=== PATIENT | male | born 1970 | race Hispanic/Latino ===

== ENCOUNTER 2016-07-12 13:07 | Observation (INO) | payer OTHER ==
[~2016-07-12] VITALS: Ht 175.3 cm; Wt 81.2 kg
[~2016-07-12 13:07] MED LIST: DEPAKOTE500 MG PO
[2016-07-12] MEDS ORDERED: LANTUS 3 M100 UNITS1 SC (13:54)
[2016-07-12] MEDS ORDERED: LIPITOR40 MG PO (13:54)
[2016-07-12] MEDS ORDERED: LISINOPRIL40 MG PO (13:55)
[2016-07-12] MEDS ORDERED: CALCIUM 500 +1 EACH PO (13:55)
[2016-07-12] MEDS ORDERED: ELAVIL25 MG PO (13:56)
[2016-07-12] MEDS ORDERED: VITAMIN A A1 CAPSULE PO (13:56)
[2016-07-12] MEDS ORDERED: VITAMIN E100 UNIT PO (13:57)
[2016-07-12] MEDS ORDERED: DAILY VALUE1 EACH PO (13:57)
[2016-07-12] MEDS ORDERED: TYLENOL EXTRA500 MG PO (13:57)
[2016-07-12] MEDS ORDERED: PROAIR HFA8.5 GM IH (13:58)
[2016-07-12] MEDS ORDERED: CLARITIN10 M3 PO (13:58)
[2016-07-12] MEDS ORDERED: DEPAKOTE250 MG PO (13:58)
[2016-07-12 14:09] LABS: EOSINOPHIL (%) 0.1 % (0-5); HEMATOCRIT 36.6 % (38.0-50.0); IMMATURE GRANULOCYTE (%) 0.3 % (0.0-0.7); IMMATURE GRANULOCYTE COUNT 0.1 K/uL; INSTRUMENT ABS NEUTROPHIL CT 12.8 K/uL; LYMPHOCYTE COUNT 0.6 K/uL (1.0-2.8); MCH 29.4 PG (29.0-34.0); MCV 83.9 FL (86-99); MEAN PLAT.VOLUME 9.2 uM^3 (9.0-12.4); MONOCYTE (%) 6.9 % (3-12); NEUTROPHIL (%) 88.7 % (45-76); NEUTROPHIL COUNT 12.8 K/uL (1.8-6.4); PLATELET COUNT 291 K/uL (156-360); RBC DIS.WIDTH-CV 13.2 % (11.8-14.6); RBC DIS.WIDTH-SD 40.4 % (39-53); RED BLOOD COUNT 4.36 M/uL (4.00-5.50); WHITE BLOOD COUNT 14.4 K/uL (4.1-10.2)
[2016-07-12 14:18] LABS: CHLORIDE 107 mEq/L (99-109); SODIUM 140 mEq/L (136-147)
[2016-07-12 14:21] LABS: GLUCOSE 131 mg/dL (70-99)
[2016-07-12 14:22] LABS: ANION GAP 11 MEQ/L (2-14); TOTAL BILIRUBIN 0.5 mg/dL (0.0-1.0)
[2016-07-12 14:23] LABS: SERUM ETHYL ALCOHOL < 10 mg/dL
[2016-07-12 14:24] LABS: ALKALINE PHOSPHATASE 60 IU/L (3-129); GFR ESTIMATE (CALCULATED) 58 mL/min/
[2016-07-12 14:25] LABS: UREA NITROGEN (BUN) 21 mg/dL (9-23)
[2016-07-12 18:22] LABS: AMPHETAMINE NEGATIVE (500 ng/mL); BENZODIAZEPINES NEGATIVE (150 ng/mL); COCAINE NEGATIVE (150 ng/mL); METHADONE NEGATIVE (200 ng/mL); METHAMPHETAMINE NEGATIVE (500 ng/mL); OPIATES (MORPHINE) NEGATIVE (100 ng/mL); PHENCYCLIDINE NEGATIVE (25 ng/mL); THC CANNABINOIDS NEGATIVE (50 ng/mL); TRICYCLIC ANTIDEPRESSANTS NEGATIVE (300 ng/mL)
[2016-07-12 18:23] LABS: BARBITURATES NEGATIVE (200 ng/mL); INTERNAL CONTROLS VALID? YES; OXYCODONE NEGATIVE (100 ng/mL); PROPOXYPHENE NEGATIVE (300 ng/mL)
[2016-07-12] MEDS ORDERED: [UNRECOGNIZED DRUG - OTHER] TP (20:57)
[2016-07-12] MEDS ORDERED: TUMS500 MG PO (21:00)
[2016-07-12] MEDS ORDERED: A AND D OINTM42.5 GM TP (21:01)
[2016-07-12] MEDS ORDERED: GLUCOSE4 GM PO (21:02)
[2016-07-13 00:01] VITALS: BP 123/76
[2016-07-13 00:21] LABS: ADD MIUA? YES; BILIRUBIN NEGATIVE; BLOOD MODERATE; COLOR YELLOW ((YELLOW)); GLUCOSE (STRIP) NEGATIVE; KETONES NEGATIVE; LEUKOCYTES LARGE; NITRITE NEGATIVE; PROTEIN (STRIP) NEGATIVE; SPECIFIC GRAVITY 1.011 (1.000-1.030); UROBILINOGEN 0.2 MG/DL (0.2-1.0)
[2016-07-13 00:29] LABS: POINT-OF-CARE METER ID UU13113831
[2016-07-13 00:32] LABS: BACTERIA NONE SEEN /HPF; EPITHELIAL CELLS RARE /HPF; MUCUS TRACE /LPF; RED BLOOD CELLS 40-50 /HPF (0-5); UCUL ADDED? NO; WHITE BLOOD CELLS 20-30 /HPF (0-5)
[2016-07-13 04:35] VITALS: BP 117/58
[2016-07-13 06:30] LABS: HEMATOCRIT 35.4 % (38.0-50.0); MCH 28.8 PG (29.0-34.0); MCHC 33.9 G/DL (30.0-36.0); MCV 85.1 FL (86-99); MEAN PLAT.VOLUME 9.8 uM^3 (9.0-12.4); PLATELET COUNT 282 K/uL (156-360); RBC DIS.WIDTH-CV 13.7 % (11.8-14.6); RBC DIS.WIDTH-SD 42.5 % (39-53); RED BLOOD COUNT 4.16 M/uL (4.00-5.50)
[2016-07-13 06:31] LABS: WHITE BLOOD COUNT 9.3 K/uL (4.1-10.2)
[2016-07-13 07:01] LABS: ANION GAP 6 MEQ/L (2-14); CHLORIDE 106 MEQ/L (99-109); GFR ESTIMATE (CALCULATED) > 59 mL/min/; SAMPLE HEMOLYSIS CHECK 0; SAMPLE ICTERIC CHECK 0; SAMPLE LIPEMIA CHECK 0; SODIUM 141 MEQ/L (136-147); UREA NITROGEN (BUN) 13 mg/dL (9-23)
[2016-07-13 07:08] LABS: GLUCOSE 81 mg/dL (70-99)
[2016-07-13 09:00] VITALS: BP 127/71
[2016-07-13 09:20] LABS: POINT-OF-CARE METER ID UU13113831
[2016-07-13 11:31] VITALS: BP 115/66
[2016-07-13 12:25] LABS: POINT-OF-CARE METER ID UU14162513
[2016-07-13 15:37] VITALS: BP 112/62
[2016-07-13 16:34] LABS: POINT-OF-CARE METER ID UU14162513
[2016-07-13] MEDS ORDERED: LEVOFLOXACIN750 MG PO (16:39)
== END 2016-07-13 18:57 ==
LOC: EME 13:07 → 5WEST 22:46 → EDOF 22:46 → 5WEST 23:38
PROVIDERS: Emergency Medicine; Hospitalist
DX: T40.901A Poisoning by unspecified psychodysleptics [hallucinogens], accidental (unintentional), initial encounter (principal); N39.0 Urinary tract infection, site not specified; G93.41 Metabolic encephalopathy; N17.9 Acute kidney failure, unspecified; D72.829 Elevated white blood cell count, unspecified; E11.9 Type 2 diabetes mellitus without complications; F31.9 Bipolar disorder, unspecified; F17.200 Nicotine dependence, unspecified, uncomplicated; E78.00 Pure hypercholesterolemia, unspecified; K21.9 Gastro-esophageal reflux disease without esophagitis
CPT/HCPCS: 70450; 71010; 80048; 80053; 81003; 82948; 83605; 85025; 85027; 93005; 94799; 99281; 99284; G0378; G0480; J1650; J1815; J7030